=== PATIENT | male | born 1940 | race Two or more races ===

== ENCOUNTER 2023-05-08 10:54 | Outpatient (AMB) | payer MEDICARE, BC, SELFPAY ==
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
[2023-05-08 11:00] VITALS: BP 130/58; PULSE 61; BMI 37.6
== END 2023-05-08 11:50 | disposition home or self-care (01) ==
PROVIDERS: Visit Provider Student in an Organized Health Care Education/Training Program
DX: M25.50 Pain in unspecified joint (principal); Z79.899 Other long term (current) drug therapy
CPT/HCPCS: 99204

== ENCOUNTER → 2023-05-08 10:54 | Outpatient (BNVA) | payer MEDICARE, BC, SELFPAY | PROVIDERS: Visit Provider Student in an Organized Health Care Education/Training Program | DX: M25.50 Pain in unspecified joint (principal); Z79.899 Other long term (current) drug therapy | CPT/HCPCS: 99202 ==